=== PATIENT | male | born 1965 | race Caucasian/White ===

== ENCOUNTER 2018-11-15 05:35 | Day surgery (SDC) | payer BC ==
[2018-11-15] MEDS ORDERED: fentaNYL 100 MCG/2 ML SDV IV ONE ×3 (05:36→08:04)
[2018-11-15] MEDS ORDERED: Midazolam 1 MG/ML 2 ML SDV IV ONE ×3 (05:36→08:05)
[2018-11-15] MEDS ORDERED: Sodium Chloride 0.9% 10 ML Syringe FLUSH PRN (06:00)
[2018-11-15] MEDS ORDERED: Dextrose 5%-0.45% NaCl 1,000 ML IV SCH (06:00)
[2018-11-15] MEDS ORDERED: fentaNYL 100 MCG/2 ML SDV ONE (06:16)
[2018-11-15] MEDS ORDERED: Midazolam 1 MG/ML 2 ML SDV ONE (06:16)
--- NOTE | 2018-11-15 13:24 | OR ---
DATE: 11/15/2018 PROCEDURES: Esophagogastroduodenoscopy, NBI, and multiple pinch biopsies. INSTRUMENT USED: [id number]-HQ190 Olympus video panendoscope. PREMEDICATIONS: No oral or topical anesthesia used. Fentanyl 100 mcg intravenous, Versed 2 mg intravenous. The procedure was done under pulse oximetry, BP recording, and plant operations engineer. INDICATION: The patient with longstanding multiple upper abdominal symptoms, unexplained, nonresponsive to medical measures, on long-term nonsteroidal anti- inflammatory drugs. The esophagogastroduodenoscopy is performed for detection of any active erosive lesions, Shelley esophagus and/or malignancy also under consideration, H. pylori status to be determined, small bowel biopsies to be obtained for celiac disease if indicated, endoscopic hemostasis therapy if needed. PROCEDURE IN DETAIL: The scope was passed with ease. Adequate visualization of the esophagus was made from proximal to distal areas. No upper esophageal lesions identified. No distal esophageal stricture. No uphill or downhill esophageal varices. No Guerita-Badillo tear. There was grade A erosive changes by [place] criteria. No esophageal polyp or tumor mass identified. Z-line was seen at around 40 cm distal to the oral verge, configuration consistent with grade 1 by ZAP classification. No proximal gastric varices noted. Gastric fundus examination by retroflexion showed no polypoid lesions. No gastric ulcer, malignant mass, or vascular ectasia identified. Duodenal bulb showed no ulcer. Visualized second part of the duodenum was unremarkable. Multiple pinch biopsies, 4 in number, were taken from different areas of the second part of the duodenum and tissues were also obtained from the duodenal bulb at 9 and 12 o'clock positions and sent for any histopathologic evidence of celiac disease. Multiple pinch biopsies were also obtained from the gastric antrum and proximal body and sent for PyloriTek test for H. pylori and histopathology. No bleeding was noted from any of the visualized areas at the completion of examination. Photographs were taken of the duodenal bulb, gastric antrum, fundus, and distal esophagus. IMPRESSION: Grade A gastroesophageal reflux disease. The patient tolerated the procedure well. [facility] /[id number]
== END 2018-11-15 10:22 | disposition home or self-care (01) ==
LOC: DL.ENDO 05:35
PROVIDERS: ATTEND Internal Medicine Gastroenterology
DX: K21.9 Gastro-esophageal reflux disease without esophagitis (principal); K29.50 Unspecified chronic gastritis without bleeding; B96.81 Helicobacter pylori [H. pylori] as the cause of diseases classified elsewhere; E66.09 Other obesity due to excess calories; Z68.31 Body mass index [BMI] 31.0-31.9, adult
CPT/HCPCS: 43239; 87077; J2250; J3010; J7042

== ENCOUNTER 2018-11-17 05:36 | Day surgery (SDC) | payer BC ==
[2018-11-17] MEDS ORDERED: fentaNYL 100 MCG/2 ML SDV IV ONE ×3 (05:37→07:02)
[2018-11-17] MEDS ORDERED: Midazolam 1 MG/ML 2 ML SDV IV ONE ×5 (05:37→07:21)
[2018-11-17] MEDS ORDERED: fentaNYL 100 MCG/2 ML SDV ONE (06:15)
[2018-11-17] MEDS ORDERED: Midazolam 1 MG/ML 2 ML SDV ONE (06:15)
[2018-11-17] MEDS ORDERED: Sodium Chloride 0.9% 10 ML Syringe FLUSH PRN (08:00)
[2018-11-17] MEDS ORDERED: Dextrose 5%-0.45% NaCl 1,000 ML IV SCH (08:00)
--- NOTE | 2018-11-17 08:50 | OR ---
DATE: 11/17/2018 PROCEDURE: Total colonoscopy, NBI, and multiple snare polypectomies. INSTRUMENT USED: PCF-H190DL Olympus video colonoscope. PREMEDICATIONS: Fentanyl 100 mcg intravenous, Versed 3 mg intravenous, nasal O2 cannula. The procedure was done under pulse oximetry, BP recording, and nurse monitoring. INDICATION: The patient with persistent abdominal pain and rectal bleeding unexplained. Colonoscopic examination is done for detection of any polypoid lesions and removal, endoscopic hemostasis therapy if needed. DESCRIPTION OF PROCEDURE: Initial rectal exam was unremarkable. Rigid anoscopy showed small internal hemorrhoids without bleeding from them. The colonoscope was passed with ease. In the proximal sigmoid colon, more than 1 cm sized pedunculated polyp was noted, NBI views were obtained, photographs were taken, snare polypectomy was done, the tissue was retrieved and sent for histopathology. Polypectomy site was clean. Photographs were taken of the polyp and polypectomy site. In the distal descending colon, 1 cm sized pedunculated polyp was noted, photographs were taken, snare polypectomy was done, the tissue was retrieved and sent for histopathology. In the mid descending colon, 2 polyps 5 mm size were noted. NBI views were obtained, photographs were taken, cold snare polypectomies were done, the tissues were retrieved and sent for histopathology. The scope was passed with ease up to the ileocecal area. Photographs were taken of the normal-appearing cecum identified by landmarks of appendiceal orifice and double-bulged ileocecal folds. No bleeding was noted from any of the visualized areas at the commencement of the examination. No stricture. No vascular ectasia. No large isolated ulcerations seen. No evidence of diffuse inflammatory bowel disease in the form of friability, contact bleeding, or ulcerations. The bowel preparation was found to be adequate, [place] scale 2 in all the regions. Probing the proximal sides of folds and flexures using adequate distention and clearing up the stool material, withdrawal of the scope was made. Cecum to rectum time over 6 minutes. No bleeding was noted from any of the visualized areas at the completion of examination. IMPRESSION: 1. Internal hemorrhoids. 2. Multiple colonic polyps. The patient tolerated the procedure well. [facility] /[id number]
== END 2018-11-17 10:56 | disposition home or self-care (01) ==
LOC: DL.ENDO 05:36
PROVIDERS: ATTEND Internal Medicine Gastroenterology
DX: R10.9 Unspecified abdominal pain (principal); K62.5 Hemorrhage of anus and rectum; D12.5 Benign neoplasm of sigmoid colon; D12.4 Benign neoplasm of descending colon; K64.8 Other hemorrhoids; K43.9 Ventral hernia without obstruction or gangrene; F41.1 Generalized anxiety disorder; E66.09 Other obesity due to excess calories; Z68.31 Body mass index [BMI] 31.0-31.9, adult
CPT/HCPCS: 45385; J2250; J3010; J7042